=== PATIENT | male | born 1960 | race Caucasian/White ===

== ENCOUNTER → 2023-09-20 | Outpatient (CLI) | payer BC ==
--- NOTE | 2023-09-20 07:48 | US ---
EXAMINATION TYPE: US abdomen complete DATE OF EXAM: 09/20/2023 COMPARISON: NONE CLINICAL INDICATION: Male, 62 years old with history of R10.11 RIGHT UPPER QUADRANT PAIN; Patient sta milly RUQ tenderness for about a month now TECHNIQUE: Multiple sonographic images of the abdomen are obtained. FINDINGS: EXAM MEASUREMENTS: Liver Length: 12.8 cm Gallbladder Wall: 0.1 cm CBD: unable to visualize due to gas CHD: 0.2cm Spleen: 9.5 cm Right Kidney: 8.0 x 4.3 x 4.8 cm Left Kidney: 9.4 x 4.8 x 4.6 cm [employer] NOTES: Slightly limited due to overlying bowel gas Pancreas: Obscured by bowel gas Liver: WNL Gallbladder: No stones seen. Wall WNL. Evidence for sonographic Bell's sign: No CBD: Obscured by overlying bowel gas CHD: WNL Spleen: wnl Right Kidney: There is a 1.3 x 1.3 x 1.5cm anechoic structure within the renal sinus. Left Kidney: No hydronephrosis or masses seen as best visualized Upper IVC: wnl Abd Aorta: wnl IMPRESSION: Parapelvic cyst right kidney.
== END | disposition home or self-care (01) ==
LOC: RADUSWWP 06:54
PROVIDERS: ATTEND Family Medicine
DX: N28.1 Cyst of kidney, acquired (principal)
CPT/HCPCS: 76700

== ENCOUNTER → 2024-12-11 | Outpatient (CLI) | payer BC ==
--- NOTE | 2024-12-11 08:58 | US ---
EXAMINATION TYPE: US abdomen limited DATE OF EXAM: 12/11/2024 COMPARISON: US 2023 CLINICAL INDICATION: Male, 64 years old with history of R10.13 EPIGASTRIC PAIN; Chest and epigastric pain TECHNIQUE: Grayscale and color Doppler imaging of the right upper quadrant was performed. FINDINGS: EXAM MEASUREMENTS: Liver Length: 12.8 cm Gallbladder Wall: 0.2 cm CBD: 0.3 cm Right Kidney: 9.7 x 4.7 x 5.1 cm Pancreas: Only a small portion of the pancreatic head could be seen. Remainder is obscured by bowel gas shadowing. Liver: homogeneous appearance without focal lesion. Gallbladder: wnl Evidence for sonographic Bell's sign: no CBD: visualized portions wnl, limited by overlying midline bowel gas Right Kidney: 2.1 x 1.9 x 2.1cm benign appearing cyst at the central mid pole. Previously 1.5 cm. No hydronephrosis. IMPRESSION: 1. No gallstones or biliary ductal dilatation. 2. A midpole central cyst within the right kidney measuring 2.1 cm versus 1.5 cm on 09/20/2023. It has an overall benign appearance. Given the interval enlargement, recommend one-year follow-up ultrasound to reassess. [facility], Workstation: CHERYLMARY KATE, 12/11/2024 8:56 AM
== END | disposition home or self-care (01) ==
LOC: RADUSWWP 08:17
PROVIDERS: ATTEND Family Medicine
DX: N28.1 Cyst of kidney, acquired (principal)
CPT/HCPCS: 76705

== ENCOUNTER → 2024-12-22 | Outpatient (CLI) | payer BC ==
--- NOTE | 2024-12-22 09:36 | NM ---
EXAMINATION TYPE: NM hepatobiliary w EF DATE OF EXAM: 12/22/2024 COMPARISON: Correlation ultrasound 12/11/2024 CLINICAL INDICATION: Male, 64 years old with history of R10.13 EPIGASTRIC PAIN; TECHNIQUE: After the intravenous administration of 5.28 mCi Tc 99m Mebrofenin hepatobiliary scintigra phy is performed. Immediate images post injection. FINDINGS: There is satisfactory initial accumulation of tracer by the liver. The gallbladder is visualized wit hin 6 minutes. The small bowel activity is noted after one hour following administration of 8 ounces of oral ensure plus is given to mimic CCK and gallbladder ejection fraction is calculated at 77 %, u pper limits of normal range. IMPRESSION: No scintigraphic evidence for acute/chronic cholecystitis or biliary dyskinesia. [facility] Krystyna Zimmerman, , 12/22/2024 9:34 AM
== END | disposition home or self-care (01) ==
LOC: RADNMMAIN 06:55
PROVIDERS: ATTEND Family Medicine
DX: R10.13 Epigastric pain (principal)
CPT/HCPCS: 78226; A9537